=== PATIENT | female | born 1955 | race Caucasian/White ===

== ENCOUNTER 2017-04-04 10:16 | Emergency (ER) | payer SELFPAY ==
[~2017-04-04] VITALS: Ht 162.6 cm; Wt 51.0 kg
[2017-04-04 11:58] VITALS: BP 133/82
== END 2017-04-04 12:03 | disposition home or self-care (01) ==
LOC: ED 11:00
DX: S40.011A Contusion of right shoulder, initial encounter (principal); S70.01XA Contusion of right hip, initial encounter; D64.9 Anemia, unspecified; W19.XXXA Unspecified fall, initial encounter; Y93.89 Activity, other specified; Y92.098 Other place in other non-institutional residence as the place of occurrence of the external cause; Y99.8 Other external cause status; I10 Essential (primary) hypertension; E11.9 Type 2 diabetes mellitus without complications
CPT/HCPCS: 36415; 80047; 99285